=== PATIENT | female | born 1950 | race Caucasian/White ===

== ENCOUNTER 2019-10-25 12:13 | Inpatient (IN) | payer OTHER ==
[~2019-10-25] VITALS: Ht 154.9 cm; Wt 77.1 kg
[2019-10-25] MEDS ORDERED: LANTUS SOL100 UNIT/1 (12:40)
== END 2019-11-05 14:30 | disposition designated cancer center or children's hospital (05) | DRG 280 ==
LOC: ER 12:13 → SURH 10-26 09:40
PROVIDERS: ADMIT Internal Medicine
PROC: B24BZZZ Ultrasonography of Heart with Aorta (ICD-10-PCS; principal; 2019-10-26)
PROC: 4A033R1 Measurement of Arterial Saturation, Peripheral, Percutaneous Approach (ICD-10-PCS; 2019-10-26)
PROC: 4A12X4Z Monitoring of Cardiac Electrical Activity, External Approach (ICD-10-PCS; 2019-10-26)
PROC: BB24ZZZ Computerized Tomography (CT Scan) of Bilateral Lungs (ICD-10-PCS; 2019-10-26)
DX: I21.4 Non-ST elevation (NSTEMI) myocardial infarction (principal); I50.21 Acute systolic (congestive) heart failure; N17.8 Other acute kidney failure; E11.65 Type 2 diabetes mellitus with hyperglycemia; I24.9 Acute ischemic heart disease, unspecified; I11.0 Hypertensive heart disease with heart failure; I27.20 Pulmonary hypertension, unspecified; I50.811 Acute right heart failure; I08.1 Rheumatic disorders of both mitral and tricuspid valves; Z79.4 Long term (current) use of insulin